=== PATIENT | male | born 1950 | race Caucasian/White ===

== ENCOUNTER 2017-04-19 06:06 | Day surgery (SDC) | payer MEDICARE, MEDICAID ==
[~2017-04-19] VITALS: Ht 188 cm; Wt 73.6 kg
[~2017-04-19 06:06] MED LIST: APIX5TAB PO; ASPI325T17 PO; ATOR40TA78 PO; DOCU-131 PO; ENOX80SY5 SQ; FLEC150T PO; FLEC50TA25 PO; MAGN400T36 HOMEMEDPO; RIVA20TA PO; SOTA80TA PO; SOTA80TA18 PO
[2017-04-19 06:23] VITALS: BP 114/86
[2017-04-19] MEDS ORDERED: FLECAINIDE 50MG TABLET PO STA (06:42)
[2017-04-19] MEDS ORDERED: APIXABAN 5 MG TABLET PO STA (06:42)
[2017-04-19] MEDS ORDERED: FLEC150T PO (06:46)
[2017-04-19 07:04] LABS: BLOOD UREA NITROGEN 13 mg/dL (7-18)
[2017-04-19] MEDS ORDERED: PROPOFOL 10 MG/ML, 20ML ONE (07:14)
== END 2017-04-19 10:12 ==
LOC: CACL 06:06
PROVIDERS: ATTEND Internal Medicine Cardiovascular Disease
DX: I48.92 Unspecified atrial flutter (principal); E78.5 Hyperlipidemia, unspecified; Z88.8 Allergy status to other drugs, medicaments and biological substances
CPT/HCPCS: 36415; 80048; 92960; 93005; 93312; 93321; 93325; J2704